=== PATIENT | male | born 1960 ===

== ENCOUNTER 2017-04-15 17:09 | Emergency (ER) | payer OTHER ==
[2017-04-15 17:44] VITALS: BP 127/89
--- NOTE | 2017-04-15 18:26 | UC ---
Throat Pain/Nasal Vasile HPI - HPI Summary HPI Summary: Sore throat for 3 days with headache. - History of Current Complaint Chief Complaint: UCGeneralIllness Stated Complaint: SORE THROAT Time Seen by Provider: 04/15/17 18:16 Hx Obtained From: Patient Onset/Duration: Sudden Onset, Lasting Days - 3, Still Present Cough: Nonproductive - very infrequent Associated Signs & Symptoms: Positive: Dysphagia, Fever. Negative: Drooling, Wheezing, Vomiting, Rash - Epiglottits Risk Factors Epiglottis Risk Factors: Negative - Allergies/Home Medications Home Medications: Home Medications Ibuprofen TAB* [Advil TAB*] 800 mg PO Q6H PRN 04/15/17 [History Confirmed ] Phenol (Antiseptic) [Chloraseptic] 1.4 % MT DAILY PRN 04/15/17 [History Confirmed 04/15/17] Pravastatin Sodium [Pravachol] 80 mg PO DAILY 04/15/17 [History Confirmed ] PMH/Surg Hx/FS Hx/Imm Hx Cardiovascular History: Cardiac Disease - Surgical History Surgical History: Yes Surgery Procedure, Year, and Place: COLONOSCOPY WITH REMOVAL OF POLYP - Family History Known Family History: Positive: Unknown - Adopted - Social History Occupation: Retired Lives: Alone Alcohol Use: Rare Substance Use Type: None Smoking Status (MU): Former Smoker When Did the Patient Quit Smoking/Using Tobacco: 2004 Review of Systems Constitutional: Fever ENT: Sore Throat Neurological: Headache Is Patient Immunocompromised?: No All Other Systems Reviewed And Are Negative: Yes Physical Exam Triage Information Reviewed: Yes Appearance: No Pain Distress, Well-Nourished, Ill-Appearing - mild Vital Signs: Initial Vital Signs Temp 99.2 F 04/15/17 17:37 Pulse 67 04/15/17 17:37 Resp 16 04/15/17 17:37 BP 127/89 04/15/17 17:37 Pulse Ox 99 04/15/17 17:37 Vital Signs Reviewed: Yes Eyes: Positive: Conjunctiva Inflamed - OU ENT: Positive: Pharyngeal erythema, TMs normal, Tonsillar swelling - mild Neck: Positive: Nontender, No Lymphadenopathy Respiratory Exam: Normal Cardiovascular Exam: Normal Musculoskeletal Exam: Normal Neurological Exam: Normal Psychological Exam: Normal Skin Exam: Normal Throat Pain/Nasal Course/Dx - Differential Dx/Diagnosis Differential Diagnosis/HQI/PQRI: Pharyngitis, Sinusitis, URI Provider Diagnoses: Acute pharyngitis Discharge - Discharge Plan Condition: Stable Disposition: HOME Patient Education Materials: Pharyngitis (ED) Additional Instructions: Cold-eeze zinc lozenges can be helpful for viral sore throats.
== END 2017-04-15 18:34 | disposition home or self-care (01) ==
LOC: UCCORT 17:09
DX: J02.9 Acute pharyngitis, unspecified (principal); Z87.891 Personal history of nicotine dependence
CPT/HCPCS: 87651; 99211; G0463